=== PATIENT | male | born 1995 | race African-American/Black ===

== ENCOUNTER 2023-12-10 02:44 | Emergency (ER) | payer OTHER ==
[~2023-12-10] VITALS: Ht 188 cm; Wt 88.5 kg
[2023-12-10] MEDS ORDERED: LIDOCAINE 1%-EPI 1:100,000 20 ML VIAL ONE (03:18)
[2023-12-10] MEDS ORDERED: TDAP [DIPH/PERTUSSIS/TET] 0.5 ML VIAL IM ONE (03:25)
[2023-12-10] MEDS: TDAP [DIPH/PERTUSSIS/TET] 0.5 ML VIAL IM ONE (03:28)
[2023-12-10] MEDS: LIDOCAINE 1%-EPI 1:100,000 20 ML VIAL TP ONE (03:28)
[2023-12-10 03:59] VITALS: BP 147/100; TEMP 98; O2SAT 99
== END 2023-12-10 03:59 | disposition home or self-care (01) ==
LOC: ER 02:44
DX: S01.81XA Laceration without foreign body of other part of head, initial encounter (principal); F12.10 Cannabis abuse, uncomplicated; R55 Syncope and collapse; W01.198A Fall on same level from slipping, tripping and stumbling with subsequent striking against other object, initial encounter; Y93.01 Activity, walking, marching and hiking; Y92.098 Other place in other non-institutional residence as the place of occurrence of the external cause; Y99.8 Other external cause status
CPT/HCPCS: 12015; 90471; 90715; 99283; J3490